=== PATIENT | female | born 1935 | race Caucasian/White ===

== ENCOUNTER 2016-08-20 15:28 | Emergency (ER) | payer MEDICARE, OTHER ==
[~2016-08-20] VITALS: Ht 157.5 cm; Wt 65.9 kg
[~2016-08-20 15:28] MED LIST: ACET1TAB33 PO; ALPR.25T PO; GABA300C PO; LOM PO; PSYL425P3 PO; [UNRECOGNIZED DRUG - CODE] PO
[2016-08-20 15:30] VITALS: BP 143/94; PULSE 107; RESP 20; O2SAT 95
--- NOTE | 2016-08-20 16:08 | ED.REPORT ---
HPI-Chest Pain 40 and Over Date of Service Aug 20, 2016 ED Provider: Erum Shukla MD 80 year old female with a hx of Afib on metoprolol presents to the ED due to nausea, vomiting and diarrhea since yesterday. Her vomiting is exacerbated with PO intake. The diarrhea is an ongoing problem. Her has similar symptoms and was diagnosed with the flu. Since yesterday she has had intermittent sharp 8 /10 CP. This pain has currently resolved after 6 baby ASA. She has a hx of similar pains of unknown cause. Additionally she reports SOB but denies diaphoresis, fever, chills, weakness, dizziness. 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 (Alprazolam-Expunged Drug, Do Not Renew! ) 0.25 Mg Tablet 0.25 MG PO TIDP For anxiety Diphenoxylate/Atr-Expunged, Do Not Renew! (Diphenoxylate/Atr-Expunged, Do Not Renew!) 2.5 Mg Tablet 1 TAB PO BIDP for diarrhea Gabapentin-Expunged Drug, Do Not Renew! (Neurontin-Expunged Drug, Do Not Renew! ) 300 Mg Capsule 600 MG PO HS Scheduled PRN Psyllium Seed (Metamucil) 425 Gm Powder 425 GM PO PRN For Constipation General Time Seen by MD: 16:07 Chief Complaint Chest pain, Nausea, Vomiting Hx Obtained From: Patient Arrived By: Walk-in Sudden in Onset?: No Onset Occurred: Yesterday Symptom Duration: Since onset Location: : Substernal Quality: Painful Severity: Current: Moderate Pertinent Negative: Relieved by nothing Risk Factors )( CAD Risk Stratification Risk factors reviewed )( TAD Risk Stratification Risk factors reviewed )( PE Risk Stratification Risk factors reviewed Past Medical History Past Medical History Anxiety UTI Denies: Congestive heart failure Reports: Atrial fibrillation Past Surgical History Repair of left incarcerated femoral hernia Reports: Appendectomy, Cataract surgery Reports: Back/neck surgery, Tubal ligation Smoking History Never Smoker Social History Alcohol Use: "Social" Drug Use: Denies drug use Review of Systems Basic Review of Systems Eyes: Vision NL, No discharge ENT: Hearing NL, No pain, No nasal congestion, No pharyngeal pain Allergy / Immune: No allergy Constitutional: Denies: Chills, Fever Respiratory: Reports: Shortness of breath Cardiovascular: Reports: Chest pain, Denies: Edema GI: Reports: Diarrhea, Nausea, Vomiting Skin: Denies Diaphoresis, Denies Rash Neurologic: Denies: Dizziness, Weakness Complete sys rev & neg: except as marked. Physical Exam Initial Vital Signs Vital Signs (First) Date Time Temp Pulse Resp B/P Pulse Ox O2 Delivery O2 Flow Rate FiO2 08/20/16 15:30 36.8 107 20 143/94 95 08/20/16 16:26 Room Air Initial VS: Reviewed, Vital signs abnormal Head / Eyes: Atraumatic, Normocephalic, PERRL ENT: Mucous membranes moist, Conjunctiva normal, No scleral icterus Neck: Supple, Non-tender, Full range of motion Extremities: Vascular intact, Neuro intact, No swelling, No tenderness Skin: Warm, Dry, No cyanosis Neurologic: Alert, Oriented, Nonfocal Psychiatric: Mood/affect normal, Behavior normal, Normal thought content General/Constitutional: Awake, Alert Respiratory / Chest: Breath sounds NL, Breath sounds = bilat, No respiratory distress, No rales, No rhonchi, No wheezing, No stridor, No chest tenderness Cardiovascular: No murmurs, Peripheral circulation NL Heart Rate / Rhythm: Positive: Irreg irregular rhythm Abdomen: Soft, Non-tender ENT: Atraumatic Mouth: Positive: Mucous membranes dry Interpretation & Diagnostics Lab Results Interpretation Result Diagram: 08/20/16 1600 08/20/16 1600 Test 08/20/16 16:00 White Blood Count 3.4th/mm3 (3.8-10.1) Red Blood Count 5.09mil/mm3 (3.90-5.20) Hemoglobin 15.1g/dL (12.0-15.6) Hematocrit 44.0% (35.0-46.0) Mean Corpuscular Volume 86.4fL (81-100) Mean Corpuscular Hemoglobin 29.7pg (27.0-35.0) Mean Corpuscular Hemoglobin Concent 34.3% (32.0-37.0) Red Cell Distribution Width 13.3% (12.3-15.4) Platelet Count 146bil/L (150-400) Neutrophils (%) (Auto) 55.5% (40-74) Lymphocytes (%) (Auto) 31.8% (14-46) Monocytes (%) (Auto) 12.1% (4-12) Eosinophils (%) (Auto) 0% (0-5) Basophils (%) (Auto) 0.3% (0-3) Sodium Level 132mEq/L (134-144) Potassium Level 3.2mEq/L (3.5-5.2) Chloride Level 91mEq/L (97-108) Carbon Dioxide Level 20mmol/L (18-29) Blood Urea Nitrogen 14mg/dL (8-27) Creatinine 0.55mg/dL (0.57-1.00) Estimat Glomerular Filtration Rate 152mL/min (>59) Glucose Level 85mg/dL (60-99) Calcium Level 8.4mg/dL (8.5-10.1) Magnesium Level 1.9mg/dL (1.6-2.6) Total Bilirubin 0.9mg/dL (0.0-1.2) Aspartate Amino Transf (AST/SGOT) 36U/L (0-50) Alanine Aminotransferase (ALT/SGPT) 14U/L (0-32) Alkaline Phosphatase 71U/L (25-165) Troponin T < 0.010ug/L (0.0-0.011) Total Protein 6.9g/dL (6.4-8.4) Albumin 3.7g/dL (3.4-5.0) Hold Goldberg Top Tube Received (Received) General Lab Results Interp 1: Labs reviewed ECG Interpretation ECG Interpretation: RBBB No acute ST or T wave changes Time: 15:53 Interpreted by: ED physician Rhythm / Conduction: Atrial fibrillation (rate of 138) X-Ray Chest Interpretation Chest Xray Interpretation: IMPRESSION: Cardiomegaly, without acute cardiopulmonary disease. Dictated by: Zachariah Carrera M.D. on 08/20/2016 at 16:14 View: Portable, 1 view Interpretation / Wet Read by: Interpret - Radiologist Re-Eval/Medical Decision Med Decision/Clinical Course The patient presents with sharp chest pain, her predominant complaint was vomiting and her with similar symptoms. Differential diagnoses considered were pneumonia, pulmonary embolus, acute coronary syndrome, dehydration, musculoskeletal chest pain, and gastritis. The patient is feeling much improved upon my examination although she was in rapid A. fib. She has been unable to take her medication for a couple of days. She is given light IV hydration and metoprolol. Given no acute EKG changes and negative troponin she is effectively ruled out for UT given the duration of her chest pain. It is unclear since the cause of her pain but again it is resolved. Time of Eval: 18:40 Re-Evaluation/Progress Note: rechecked- Slightly tachycardic. Otherwise resting comfortably. Time of Eval: 18:56 Re-Evaluation/Progress Note: Has been unable to take new med, metoprolol, due to vomiting. Time of Eval: 19:14 Patient Status: Condition improved Re-Evaluation/Progress Note: Updated pt of labs, ECG and imaging results. Discussed plan for discharge and follow up. All questions addressed. Counseled Regarding: Diagnosis, Lab results, Need for follow-up, When/why to return to ED Discharge & Departure Primary Impression: Vomiting Vomiting type: unspecified Vomiting Intractability: non-intractable Nausea presence: with nausea Qualified Code: R11.2 - Nausea with vomiting, unspecified Additional Impressions: Dehydration Chronic a-fib Non-cardiac chest pain Disposition: Home Discharge Condition All VS Reviewed: Yes Condition: Improved Patient Instructions: Chest Pain (ED), Dehydration (ED) Additional Instructions: Take metoprolol as directed every evening. Follow up with your doctor if you continue to have symptoms next week. Return to the ER if you are unable to take your medications, keep fluids down or for any new or concerning symptoms. Referrals: Silviano Urbina MD (PCP) Justen Herring MD Scribe Attestation Portions of this note were transcribed by Elvira Erickson. I, (Dr. Shukla) personally performed the history, physical exam and medical decision-making; I reviewed and confirmed the accuracy of the information in the transcribed note. Signed by: Elvira Erickson. 08/20/2016, 1999 copies to: Silviano Urbina MD; Justen Herring MD, Jena M MD Aug 20, 2016 16:08 Elvira Erickson Aug 20, 2016 16:39
[2016-08-20] MEDS ORDERED: Diltiazem 5 mg/mL 5 mL Inj IVPUSH ONE (16:10)
[2016-08-20 16:16] LABS: BASOPHILS % (AUTO) 0.3 % (0-3); EOSINOPHILS % (AUTO) 0 % (0-5); MONOCYTES % (AUTO) 12.1 % (4-12); Mean Corpuscular Hemoglobin 29.7 pg (27.0-35.0); Mean Corpuscular Volume 86.4 fL (81-100); NEUTROPHILS % (AUTO) 55.5 % (40-74); Platelet Count 146 bil/L (150-400)
--- NOTE | 2016-08-20 16:16 | DRSVH ---
PROCEDURE: X-RAY CHEST ONE VIEW, PORTABLE ([id number]) INDICATIONS: 80 year-old female with intermittent chest pain with shortness of breath. TECHNIQUE: One view of the chest was acquired. COMPARISON: [facility], , CHEST 1VW (PORTABLE), 01/05/2013, 12:22. FINDINGS: Surgical changes and devices: None. Lungs and pleura: No pleural effusions or pneumothorax. Lungs are clear. Mediastinum: Mediastinal contours appear normal. There is newly apparent cardiomegaly. Bones and chest wall: No suspicious bony lesions. Overlying soft tissues appear unremarkable. IMPRESSION: Cardiomegaly, without acute cardiopulmonary disease. Dictated by: Zachariah Carrera M.D. on 08/20/2016 at 16:14 Approved by: Zachariah Carrera M.D. on 08/20/2016 at 16:14
[2016-08-20 16:26] VITALS: BP 131/107; PULSE 134; RESP 17; O2SAT 96
[2016-08-20] MEDS ORDERED: Ondansetron 2 mg/mL 2 mL Inj IVPUSH ONE (16:40)
[2016-08-20] MEDS ORDERED: 0.9% Sodium Chloride 500 ML IV ONE (16:40)
[2016-08-20 16:46] LABS: Magnesium 1.9 mg/dL (1.6-2.6)
[2016-08-20 16:50] LABS: TROPONIN T < 0.010 ug/L (0.0-0.011)
[2016-08-20] MEDS ORDERED: Potassium Chloride 20 mEq/15 mL 15mL Oral Soln PO ONE (17:05)
[2016-08-20 17:45] VITALS: BP 133/98; PULSE 104; RESP 18; O2SAT 95
[2016-08-20 18:00] VITALS: BP 137/93; PULSE 112; RESP 11; O2SAT 94
[2016-08-20] MEDS ORDERED: MeTOProlol 1 mg/mL 5 mL Inj IVPUSH ONE (18:00)
[2016-08-20 18:45] VITALS: BP 119/103; PULSE 100; RESP 17; O2SAT 94
[2016-08-20] MEDS ORDERED: MeTOProlol XL 25 mg ER24 Tablet PO ONE (19:00)
[2016-08-20 19:30] VITALS: BP 141/93; PULSE 106; RESP 20; O2SAT 99
== END 2016-08-20 19:31 | disposition home or self-care (01) ==
LOC: SED 15:28 → UNDOADMOB 18:07 → OSC 18:07 → SED 19:31
DX: E86.0 Dehydration (principal); R07.89 Other chest pain; I48.2 Chronic atrial fibrillation; Z87.440 Personal history of urinary (tract) infections
CPT/HCPCS: 36415; 71010; 80053; 83735; 84484; 85025; 87804; 93005; 96361; 96374; 96375; 99285; J2405; J7040

== ENCOUNTER 2016-08-29 12:09 | Emergency (ER) | payer MEDICARE, OTHER ==
[~2016-08-29] VITALS: Ht 157.5 cm; Wt 63.6 kg
[2016-08-29 12:13] VITALS: BP 152/99; PULSE 69; RESP 16; O2SAT 98
--- NOTE | 2016-08-29 12:26 | ED.REPORT ---
HPI-Chest Pain 40 and Over Date of Service Aug 29, 2016 ED Provider: Ji Morales MD This is an 81 year old female with a history of chronic atrial fibrillation with RVR on metoprolol presenting with heart palpitations that began 4 hours ago. Associated symptoms include mild SOB. She also reports persistent cough that began 4 weeks ago. She denies chest pain or difficulty breathing. Denies dizziness, nausea, vomiting, change LOC, or lightheadedness. Pt was in the ED one week ago with similar presentation, discharged with plan for follow up with cardiology. She had an echocardiogram 5 days ago. Pt has an appointment with Dr. Renee, mobile home park manager tomorrow. Nursing Notes Stated Complaint: CHEST PAIN/SOB Chief Complaint: Dysrhythmia/Cardiac Nursing Notes Reviewed: Yes Allergies: Coded Allergies: No Known Allergies (Verified Allergy, Unknown, 08/29/16) Scheduled Acetaminophen/Caffeine (Excedrin Tension Headache Glcp) 1 Each Tablet 1 EACH PO PRN Acetaminophen/Diphenhydramine (Hm Acetaminophen Pm Caplet) 1 Each Tablet 1 EACH PO HSP for insomnia Alprazolam-Expunged Drug, Do Not Renew! (Alprazolam-Expunged Drug, Do Not Renew! ) 0.25 Mg Tablet 0.25 MG PO TIDP For anxiety Diphenoxylate/Atr-Expunged, Do Not Renew! (Diphenoxylate/Atr-Expunged, Do Not Renew!) 2.5 Mg Tablet 1 TAB PO BIDP for diarrhea Gabapentin-Expunged Drug, Do Not Renew! (Neurontin-Expunged Drug, Do Not Renew! ) 300 Mg Capsule 600 MG PO HS Scheduled PRN Psyllium Seed (Metamucil) 425 Gm Powder 425 GM PO PRN For Constipation General Time Seen by MD: 12:25 Chief Complaint Other (palpitations) Hx Obtained From: Patient Arrived By: Ambulance Sudden in Onset?: Yes Onset Occurred: 1 - 4 hours ago Symptom Duration: Since onset Severity: Current: No pain currently Pertinent Negative: Pt denies other symptoms Recent Healthcare: Recent doctor visit Similar Sx Previous: Yes Past Medical History Past Medical History Anxiety UTI Reports: Atrial fibrillation Past Surgical History Repair of left incarcerated femoral hernia Reports: Appendectomy, Cataract surgery Reports: Back/neck surgery, Tubal ligation Smoking History Never Smoker Social History Alcohol Use: "Social" Drug Use: Denies drug use Ambulatory Status Independent Review of Systems Constitutional: Denies: Chills, Fever Respiratory: Reports: Non-productive cough, Shortness of breath Cardiovascular: Reports: Palpitations, Denies: Chest pain GI: Denies: Abdominal pain, Nausea, Vomiting Neurologic: Denies: Change LOC, Confusion, Dizziness, Headache, Lightheaded Complete sys rev & neg: except as marked. Physical Exam Initial Vital Signs Vital Signs (First) Date Time Temp Pulse Resp B/P Pulse Ox O2 Delivery O2 Flow Rate FiO2 08/29/16 12:13 69 16 152/99 98 Room Air 08/29/16 12:36 36.6 Initial VS: Reviewed Head / Eyes: Atraumatic, Normocephalic, PERRL ENT: Mucous membranes moist, Conjunctiva normal, No scleral icterus Neck: Supple, Non-tender, Full range of motion Extremities: Vascular intact, Neuro intact, No swelling, No tenderness Skin: Warm, Dry, No cyanosis Neurologic: Alert, Oriented, Nonfocal Psychiatric: Mood/affect normal, Behavior normal, Normal thought content General/Constitutional: Awake, Alert Respiratory / Chest: Breath sounds NL, Breath sounds = bilat, No respiratory distress, No rales, No rhonchi, No wheezing, No stridor, No chest tenderness Cardiovascular: No murmurs Heart Rate / Rhythm: Positive: Irreg irregular rhythm, Tachycardia Abdomen: Soft, Non-tender, McBurney's non-tender, No guarding, No rebound, BS normoactive, No distention, No hernia, No palpable mass Interpretation & Diagnostics Lab Results Interpretation Result Diagram: 08/29/16 1223 08/29/16 1223 Test 08/29/16 12:23 White Blood Count 7.1th/mm3 (3.8-10.1) Red Blood Count 5.08mil/mm3 (3.90-5.20) Hemoglobin 14.9g/dL (12.0-15.6) Hematocrit 45.0% (35.0-46.0) Mean Corpuscular Volume 88.6fL (81-100) Mean Corpuscular Hemoglobin 29.3pg (27.0-35.0) Mean Corpuscular Hemoglobin Concent 33.1% (32.0-37.0) Red Cell Distribution Width 13.8% (12.3-15.4) Platelet Count 282bil/L (150-400) Neutrophils (%) (Auto) 64.9% (40-74) Lymphocytes (%) (Auto) 27.1% (14-46) Monocytes (%) (Auto) 6.9% (4-12) Eosinophils (%) (Auto) 0.6% (0-5) Basophils (%) (Auto) 0.4% (0-3) Prothrombin Time 11.3sec (8.1-12.5) Prothromb Time International Ratio 1.05ratio Activated Partial Thromboplast Time 22.7sec (22.8-33.0) Sodium Level 139mEq/L (134-144) Potassium Level 3.9mEq/L (3.5-5.2) Chloride Level 99mEq/L (97-108) Carbon Dioxide Level 24mmol/L (18-29) Blood Urea Nitrogen 14mg/dL (8-27) Creatinine 0.71mg/dL (0.57-1.00) Estimat Glomerular Filtration Rate 113mL/min (>59) Glucose Level 121mg/dL (60-99) Calcium Level 9.0mg/dL (8.5-10.1) Magnesium Level 2.1mg/dL (1.6-2.6) Total Bilirubin 0.9mg/dL (0.0-1.2) Aspartate Amino Transf (AST/SGOT) 21U/L (0-50) Alanine Aminotransferase (ALT/SGPT) 13U/L (0-32) Alkaline Phosphatase 81U/L (25-165) Troponin T < 0.010ug/L (0.0-0.011) Total Protein 7.2g/dL (6.4-8.4) Albumin 3.9g/dL (3.4-5.0) Hold Goldberg Top Tube Received (Received) ECG Interpretation ECG Interpretation: A-fib at a rate of 110 RBBB T-wave inversions in V1-V5 which is unchanged from prior Time: 12:30 X-Ray Chest Interpretation Chest Xray Interpretation: IMPRESSION: No acute process. Cardiomegaly. Dictated by: Pk Webb M.D. on 08/29/2016 at 12:48 Approved by: Pk Webb M.D. on 08/29/2016 at 12:48 Re-Eval/Medical Decision Med Decision/Clinical Course 81-year-old female history of atrial fibrillation with RVR on aspirin and metoprolol presenting complaining of palpitations times several days denies any chest pain. EKG with atrial fibrillation. Initially with heart rate in the 1 teens. She was given 2 doses of IV metoprolol and minimal IV fluids and her heart rate improved to 90s. She requested home. Troponins negative. Patient has follow-up with cardiology tomorrow. Discharged home with return precautions plans to continue her metoprolol. Time of Eval: 15:22 Re-Evaluation/Progress Note: Plan for dischage, all questions addressed. Counseled Regarding: Diagnosis, Lab results, Need for follow-up Discharge & Departure Primary Impression: Palpitations Additional Impression: Atrial fibrillation with RVR Disposition: Home Discharge Condition All VS Reviewed: Yes Condition: Stable Additional Instructions: Continue Metoprolol as discussed. Follow-up with the mobile home park manager as scheduled. Return to the emergency department if you develop any new or worsening symptoms such as palpitations, chest pain, nausea, dizziness, lightheadedness, or sweating. Referrals: Fabiana Pablo (PCP) Scribe Attestation Portions of this note were transcribed by Kali Escobedo. I, Dr. Morales personally performed the history, physical exam and medical decision-making; I reviewed and confirmed the accuracy of the information in the transcribed note. Signed by: Kali Escobedo. 08/29/2015, 12:45. Ji Morales MD Aug 29, 2016 12:26 KALI ESCOBEDO Aug 29, 2016 12:30
[2016-08-29 12:39] LABS: BASOPHILS % (AUTO) 0.4 % (0-3); EOSINOPHILS % (AUTO) 0.6 % (0-5); MONOCYTES % (AUTO) 6.9 % (4-12); Mean Corpuscular Hemoglobin 29.3 pg (27.0-35.0); Mean Corpuscular Volume 88.6 fL (81-100); NEUTROPHILS % (AUTO) 64.9 % (40-74); Platelet Count 282 bil/L (150-400)
--- NOTE | 2016-08-29 12:50 | DRSVH ---
PROCEDURE: X-RAY CHEST ONE VIEW, PORTABLE ([id number]) INDICATIONS: CHEST PAIN TECHNIQUE: One view of the chest was acquired. COMPARISON: [facility], CR, XR CHEST 1VW (PORTABLE), 08/20/2016, 15:57[facility] 01/[facility]/2013, 12:22. FINDINGS: Surgical changes and devices: None. Lungs and pleura: No pleural effusions or pneumothorax. Lungs are clear. Mediastinum: Mediastinal contours appear normal. Heart size is enlarged. Bones and chest wall: No suspicious bony lesions. Overlying soft tissues appear unremarkable. IMPRESSION: No acute process. Cardiomegaly. Dictated by: Pk Webb M.D. on 08/29/2016 at 12:48 Approved by: Pk Webb M.D. on 08/29/2016 at 12:48
[2016-08-29 12:56] LABS: INR 1.05 ratio
[2016-08-29 13:13] LABS: Magnesium 2.1 mg/dL (1.6-2.6)
[2016-08-29 13:18] LABS: TROPONIN T < 0.010 ug/L (0.0-0.011)
[2016-08-29] MEDS ORDERED: 0.9% Sodium Chloride 500 ML IV ONE (14:04)
[2016-08-29] MEDS: MeTOProlol 1 mg/mL 5 mL Inj IVPUSH PRN ×2 (14:31→14:41)
== END 2016-08-29 15:39 | disposition home or self-care (01) ==
LOC: SED 12:09
DX: I48.2 Chronic atrial fibrillation (principal); R00.2 Palpitations; I45.10 Unspecified right bundle-branch block; Z79.82 Long term (current) use of aspirin
CPT/HCPCS: 36415; 71010; 80053; 83735; 84484; 85025; 85610; 85730; 93005; 96374; 99285; J7030

== ENCOUNTER 2016-12-12 11:01 | Emergency (ER) | payer MEDICARE, OTHER ==
[~2016-12-12] VITALS: Ht 160 cm; Wt 66.8 kg
[2016-12-12 11:26] VITALS: BP 177/111; PULSE 63; RESP 16; O2SAT 97
--- NOTE | 2016-12-12 11:46 | ED.REPORT ---
HPI-General Illness Date of Service Dec 12, 2016 ED Provider:Dr. Morales 81 y/o female with a hx of HTN, chronic A-fib presents to the ED c/o lightheadedness and dizziness upon standing onset this morning. Pt c/o associated headache. She denies chest pain and shortness of breath. She noticed that her blood pressure was significantly elevated this morning >170 systolic. She reports that her BP, vitals and other sx have significantly improved since arriving at the ED. She took her regular metoprolol this morning. Nursing Notes Stated Complaint: HIGH BLOOD PRESSURE Chief Complaint: General Complaint Nursing Notes Reviewed: Yes Allergies: Coded Allergies: No Known Allergies (Verified Allergy, Unknown, 12/12/16) Scheduled Acetaminophen/Caffeine (Excedrin Tension Headache Glcp) 1 Each Tablet 1 EACH PO PRN Acetaminophen/Diphenhydramine (Hm Acetaminophen Pm Caplet) 1 Each Tablet 1 EACH PO HSP for insomnia Alprazolam-Expunged Drug, Do Not Renew! (Alprazolam-Expunged Drug, Do Not Renew! ) 0.25 Mg Tablet 0.25 MG PO TIDP For anxiety Diphenoxylate/Atr-Expunged, Do Not Renew! (Diphenoxylate/Atr-Expunged, Do Not Renew!) 2.5 Mg Tablet 1 TAB PO BIDP for diarrhea Gabapentin-Expunged Drug, Do Not Renew! (Neurontin-Expunged Drug, Do Not Renew! ) 300 Mg Capsule 600 MG PO HS Scheduled PRN Psyllium Seed (Metamucil) 425 Gm Powder 425 GM PO PRN For Constipation General Time Seen by MD: 11:45 Chief Complaint Dizziness Hx Obtained From: Patient Arrived By: Walk-in Onset Occurred: 1 - 4 hours ago Symptom Duration: Since onset Location: : Head Quality: Painful Severity: Current: Mild Severity: Maximum: Mild Recent Healthcare: No recent doctor visit Similar Sx Previous: No Past Medical History Past Medical History Anxiety UTI Hypertension Chronic atrial fibrillation Past Surgical History Repair of left incarcerated femoral hernia Reports: Appendectomy, Cataract surgery Reports: Back/neck surgery, Tubal ligation Smoking History Never Smoker Social History Alcohol Use: "Social" Drug Use: Denies drug use Ambulatory Status Independent Review of Systems Full Review of Systems Constitutional: Denies: Chills, Fever Respiratory: Denies: Shortness of breath Cardiovascular: Denies: Chest pain Neurologic: Reports: Dizziness, Headache, Lightheaded Complete sys rev & neg: except as marked. Physical Exam Vital Signs Vital Signs Date Time Temp Pulse Resp B/P Pulse Ox O2 Delivery O2 Flow Rate FiO2 12/12/16 15:14 36.5 69 16 167/96 97 Room Air 12/12/16 14:03 70 167/96 12/12/16 14:03 69 172/119 12/12/16 14:01 71 157/102 12/12/16 11:59 161/112 171/121 12/12/16 11:26 36.5 63 16 177/111 97 Room Air Initial VS: Reviewed, Vital signs abnormal Head / Eyes: Atraumatic, Normocephalic, PERRL ENT: Mucous membranes moist, Conjunctiva normal, No scleral icterus Neck: Supple, Full range of motion Respiratory: Breath sounds normal, Clear to auscultation, No respiratory distress Abdomen / GI: Soft, Non-tender, No guarding, No rebound, No distention Extremities: Vascular intact, Neuro intact, No swelling, No tenderness Skin: Warm, Dry, No cyanosis Psychiatric: Mood/affect normal, Behavior normal, Normal thought content General/Constitutional: Awake, Alert, No acute distress, Well appearing, Cooperative, Not toxic appearing Cardiovascular: Heart rate NL, Regular rhythm, Heart sounds NL, No murmurs Back: Atraumatic, Full range of motion Upper Extremities Upper Extremity / MS: Atraumatic, Full range of motion Lower Extremity / Pelvis / MS: Atraumatic, Full range of motion Neurologic: Oriented X3, Speech NL, No motor deficits, No sensory deficits, CN II - XII intact, Cerebellar NL, Memory NL Interpretation & Diagnostics Lab Results Interpretation Result Diagram: 12/12/16 1211 12/12/16 1305 Test 12/12/16 12:11 12/12/16 13:05 12/12/16 14:15 White Blood Count 4.5th/mm3 (3.8-10.1) Red Blood Count 4.75mil/mm3 (3.90-5.20) Hemoglobin 14.2g/dL (12.0-15.6) Hematocrit 43.1% (35.0-46.0) Mean Corpuscular Volume 90.7fL (81-100) Mean Corpuscular Hemoglobin 29.9pg (27.0-35.0) Mean Corpuscular Hemoglobin Concent 32.9% (32.0-37.0) Red Cell Distribution Width 15.3% (12.3-15.4) Platelet Count 181bil/L (150-400) Neutrophils (%) (Auto) 50.9% (40-74) Lymphocytes (%) (Auto) 40.2% (14-46) Monocytes (%) (Auto) 5.8% (4-12) Eosinophils (%) (Auto) 2.2% (0-5) Basophils (%) (Auto) 0.9% (0-3) Hold Purple Top Tube Received (Received) Hold Blue Top Tube Received (Received) Hold [place] Top Tube Received (Received) Sodium Level 139mEq/L (134-144) Potassium Level 4.3mEq/L (3.5-5.2) Chloride Level 103mEq/L (97-108) Carbon Dioxide Level 18mmol/L (18-29) Blood Urea Nitrogen 17mg/dL (8-27) Creatinine 0.77mg/dL (0.57-1.00) Estimat Glomerular Filtration Rate 103mL/min (>59) Glucose Level 86mg/dL (60-99) Calcium Level 9.3mg/dL (8.5-10.1) Magnesium Level 2.2mg/dL (1.6-2.6) Total Bilirubin 0.5mg/dL (0.0-1.2) Aspartate Amino Transf (AST/SGOT) 18U/L (0-50) Alanine Aminotransferase (ALT/SGPT) 7U/L (0-32) Alkaline Phosphatase 78U/L (25-165) Troponin T < 0.010ug/L (0.0-0.011) Total Protein 6.6g/dL (6.4-8.4) Albumin 4.3g/dL (3.4-5.0) Hold Urine Received (Received) ECG Interpretation ECG Interpretation: Atrial Fibrillation. Rate 65 No STT changes Time: 12:59 Interpreted by: ED physician Normal ECG Interpretation: No acute ischemic changes X-Ray Chest Interpretation Chest Xray Interpretation: IMPRESSION: Mild chronic cardiomegaly. No definite acute CHF. Dictated by: Chapo Boykin M.D. on 12/12/2016 at 13:58 Approved by: Chapo Boykin M.D. on 12/12/2016 at 13:58 View: Portable, 1 view Interpretation / Wet Read by: Interpret - Radiologist CT Head Interpretation IMPRESSION: 1. No acute intracranial abnormality. 2. Moderate cerebral volume loss and mild chronic white matter small vessel ischemic changes. Dictated by: Gunner Matthews M.D. on 12/12/2016 at 13:44 Approved by: Gunner Matthews M.D. on 12/12/2016 at 13:46 Study: Head CT no contrast Interpretation / Wet Read by: Interpret - Radiologist Re-Eval/Medical Decision Med Decision/Clinical Course 81-year-old female history of atrial fibrillation and hypertension presenting complaining of dizziness this morning. She had no associated symptoms. Short-lived and is resolved prior to arrival. Orthostatics normal. Labs are stable. EKG no signs ischemia. She also had a left-sided headache. CT head no acute pathology. Her blood pressures stable here. She reports it was elevated at home. I do not see an acute indication for hospitalization. Discussed with patient and she would like to go home. She will follow up with her primary doctor tomorrow for blood pressure recheck and reevaluation. Return precautions given. Source of Hx: Old records Time of Eval: 14:46 Patient Status: Condition improved Re-Evaluation/Progress Note: Pt rechecked. Discussed lab and imaging results and diagnosis. Informed the pt of the plan to discharge. Pt understands and agrees with plan. F/U instructions and RTER warning given. All questions addressed. Counseled Regarding: Diagnosis, Lab results, Need for follow-up, When/why to return to ED Discharge & Departure Primary Impression: Dizziness Additional Impressions: Hypertension Hypertension type: essential hypertension Qualified Code: I10 - Essential ( primary) hypertension Atrial fibrillation Atrial fibrillation type: chronic Qualified Code: I48.2 - Chronic atrial fibrillation Disposition: Home Discharge Condition All VS Reviewed: Yes Condition: Stable Patient Instructions: Chronic Hypertension (ED) Additional Instructions: Your blood pressure was elevated today but not severely and decreased during your stay. Your chest x-ray, head CT, and labs were all normal. Follow up with your primary care physician next week for further evaluation. Please discuss your blood pressure medication during that visit. Return to the emergency department if your blood pressure is greater than 180 despite your regular medications, or if you experience chest pain, difficulty breathing, one-sided numbness or weakness, slurred speech, vision changes, or for any new or worsening symptoms. Referrals: Fabiana Pablo (PCP) Scribe Attestation Portions of this note were transcribed by Betty Rojo and Maximino Saenz. I, , personally performed the history, physical exam and medical decision-making;I reviewed and confirmed the accuracy of the information in the transcribed note. Signed by Betty Rojo and Kaley Lazo. 12/12/16 14:06 copies to: Fabiana Pablo Ben M MD Dec 12, 2016 11:46 Betty Rojo Dec 12, 2016 12:42 MAXIMINO SAENZ Dec 12, 2016 13:49
[2016-12-12 11:59] VITALS: BP_SYST 161; BP_SYST 171; BP_DIAS 112; BP_DIAS 121
[2016-12-12] MEDS ORDERED: 0.9% Sodium Chloride 500 ML IV ONE (12:40)
[2016-12-12 12:46] LABS: BASOPHILS % (AUTO) 0.9 % (0-3); EOSINOPHILS % (AUTO) 2.2 % (0-5); MONOCYTES % (AUTO) 5.8 % (4-12); Mean Corpuscular Hemoglobin 29.9 pg (27.0-35.0); Mean Corpuscular Volume 90.7 fL (81-100); NEUTROPHILS % (AUTO) 50.9 % (40-74); Platelet Count 181 bil/L (150-400)
[2016-12-12 13:45] LABS: Magnesium 2.2 mg/dL (1.6-2.6)
[2016-12-12 13:46] LABS: TROPONIN T < 0.010 ug/L (0.0-0.011)
--- NOTE | 2016-12-12 13:47 | DRSVH ---
PROCEDURE: CT BRAIN WITHOUT CONTRAST ([id number]) INDICATIONS: dizziness TECHNIQUE: Noncontrast 4.5 mm thick angled axial sections acquired from the foramen magnum to the vertex, with c oronal reformats. COMPARISON: None. FINDINGS: Image quality: Excellent. CSF spaces: Basal cisterns are patent. No extra-axial fluid collections. The ventricles are symmet kika in size and shape. There is moderate cerebral volume loss, with resultant ventricular and sulcal prominence. Brain: No intracranial hemorrhage, mass, or mass effect. There are subcortical, periventricular and deep white matter hypodensities consistent with mild chronic small vessel ischemic changes. There i s intracranial internal carotid artery atherosclerosis. Skull and face: Calvarium and visualized facial bones appear intact, without suspicious lesions. Sinuses: Visualized sinuses and mastoids are clear. IMPRESSION: 1. No acute intracranial abnormality. 2. Moderate cerebral volume loss and mild chronic white matter small vessel ischemic changes. Dictated by: Gunner Matthews M.D. on 12/12/2016 at 13:44 Approved by: Gunner Matthews M.D. on 12/12/2016 at 13:46
--- NOTE | 2016-12-12 14:00 | DRSVH ---
PROCEDURE: X-RAY CHEST ONE VIEW, PORTABLE ([id number]) INDICATIONS: dizziness TECHNIQUE: One view of the chest was acquired. COMPARISON: [facility], CR, XR CHEST 1VW (PORTABLE), 08/29/2016, 12:28. [facility], CR, XR CHEST 1VW (PORTABLE), 08/20/2016, 15:57. FINDINGS: Surgical changes and devices: None. Lungs and pleura: No pleural effusions or pneumothorax. Lungs are clear. Mediastinum: Mediastinal contours appear normal. Heart size is just above the upper limits of venita l. Bones and chest wall: No suspicious bony lesions. Overlying soft tissues appear unremarkable. IMPRESSION: Mild chronic cardiomegaly. No definite acute CHF. Dictated by: Chapo Boykin M.D. on 12/12/2016 at 13:58 Approved by: Chapo Boykin M.D. on 12/12/2016 at 13:58
[2016-12-12 14:01] VITALS: BP 157/102; PULSE 71
[2016-12-12 14:03] VITALS: BP_SYST 167; BP_SYST 172; BP_DIAS 119; BP_DIAS 96; PULSE 69; PULSE 70
[2016-12-12 15:14] VITALS: BP 167/96; PULSE 69; RESP 16; O2SAT 97
== END 2016-12-12 15:17 | disposition home or self-care (01) ==
LOC: SED 11:01
DX: R42 Dizziness and giddiness (principal); I10 Essential (primary) hypertension; I48.2 Chronic atrial fibrillation
CPT/HCPCS: 36415; 70450; 71010; 80053; 83735; 84484; 85025; 93005; 99285; J7030